=== PATIENT | female | born 2000 | race Caucasian/White ===

== ENCOUNTER → 2019-02-13 | Outpatient (CLI) | payer BC ==
--- NOTE | 2019-02-13 12:31 | XR ---
EXAMINATION TYPE: XR abdomen 1V DATE OF EXAM: 02/13/2019 COMPARISON: NONE HISTORY: Hematuria TECHNIQUE: One view abdominal series FINDINGS: The osseous structures are intact. The bowel gas pattern is nonspecific. There is extensive retained fecal debris. Correlate for constipation. Right kidney: Obscured by extensive overlying fecal debris. No obvious calcifications. Left kidney: Within the region of the renal pelvis there is a large calcification measuring 7 x 7 mm. Pelvis: No suspicious calcifications. IMPRESSION: 1. Nonspecific abdomen. Correlate for constipation. 2. 7 mm left renal pelvic calcification.
== END | disposition home or self-care (01) ==
LOC: RADXRMAIN 11:44
PROVIDERS: ATTEND Urology
DX: K59.00 Constipation, unspecified (principal); N28.89 Other specified disorders of kidney and ureter; R31.9 Hematuria, unspecified
CPT/HCPCS: 74018

== ENCOUNTER → 2019-05-08 | Outpatient (CLI) | payer BC ==
--- NOTE | 2019-05-08 13:13 | XR ---
EXAMINATION TYPE: XR KUB DATE OF EXAM: 05/08/2019 COMPARISON: 02/13/2019 HISTORY: Pain TECHNIQUE: One view abdominal series FINDINGS: The osseous structures are intact. The bowel gas pattern is nonspecific. Extensive retained bowel co ntent. Right kidney: Obscured by extensive overlying fecal debris. No obvious calcifications. Left kidney: Within the region of the renal pelvis there is a large calcification measuring 7 x 7 mm. Pelvis: No suspicious calcifications. IMPRESSION: 1. Stable left renal pelvic calcification measuring approximately 7 x 7 mm. 2. Correlate for constipation.
== END | disposition home or self-care (01) ==
LOC: RADXRMAIN 12:35
PROVIDERS: ATTEND Urology
DX: N20.1 Calculus of ureter (principal)
CPT/HCPCS: 74018

== ENCOUNTER → 2019-05-18 | Outpatient (CLI) | payer BC ==
--- NOTE | 2019-05-18 13:20 | XR ---
KUB HISTORY: Left-sided ureteral calculus Frontal KUB and 2 images correlated to prior KUB 05/08/2019 Calcification overlying the left kidney is again noted measures approximately 13 mm in greatest cepha locaudal dimension. There is a large amount of retained fecal debris present. Osseous structures are well-mineralized. IMPRESSION: Left-sided calculus does not show significant change. Correlate for constipation.
== END | disposition home or self-care (01) ==
LOC: RADXRMAIN 07:41
PROVIDERS: ATTEND Urology
DX: N20.1 Calculus of ureter (principal); Z98.890 Other specified postprocedural states
CPT/HCPCS: 74018

== ENCOUNTER 2019-05-30 12:28 | Day surgery (SDC) | payer BC ==
[2019-05-30 13:04] VITALS: RESP 16
[2019-05-30] MEDS ORDERED: LACTATED RINGERS 1,000 ML IV ONE (13:13)
[2019-05-30] MEDS ORDERED: DEXAMETHASONE SOD PHOSPHATE 10 MG/ML 1 ML VIAL IV ONE (13:14)
[2019-05-30] MEDS ORDERED: ONDANSETRON 4 MG/2 ML VIAL IVP ONE ×2 (13:14→16:47)
[2019-05-30] MEDS ORDERED: PHENYLEPHRINE-0.9% NACL SYG 1 MG/10 ML SYRINGE ONE (13:47)
[2019-05-30] MEDS ORDERED: MIDAZOLAM 2 MG/2 ML VIAL ONE (13:47)
[2019-05-30] MEDS ORDERED: PROPOFOL 10 MG/ML 20 ML VIAL IV ONE (13:47)
[2019-05-30] MEDS ORDERED: fentaNYL (PF) 50 MCG/ML 2 ML AMP ONE (13:47)
[2019-05-30] MEDS ORDERED: LIDOCAINE 1% INJ 10MG/ML (20 ML MDV) ONE (13:47)
[2019-05-30 15:14] VITALS: TEMP 97
--- NOTE | 2019-05-30 15:21 | P.OP ---
Date of Procedure: 05/30/19 Preoperative Diagnosis: Left ureteral calculus Postoperative Diagnosis: Same Procedure(s) Performed: Cystoscopy, left ureteroscopy, laser lithotripsy and stone basketing, placement of 6 x 26 stent Anesthesia: MEGHANA Surgeon: Wilder Diana Estimated Blood Loss (ml): 10 Pathology: other (stone) Indications for Procedure: The patient is a 18-year-old female who had a 9 mm UPJ stone. She underwent shockwave lithotripsy and the stone didn't break. She is still having pain and blood. She comes for ureteroscopy. Description of Procedure: The patient is brought to the operating suite. She is given a general endotracheal anesthesia. She's placed lithotomy position with sterile prep and drape. Cystoscopy Foroblique lens and 22-Bahamian sheath identifies normal urethra. The left ureter orifices identified and normal. The rest the bladder rooney unremarkable as is a right ureteral orifice. The left ureteral orifice was intubated with an 035 wire. I removed the cystoscope and over the wires passed in the 13-98-Mnfinw reentry sheath. I removed the inner sheath and wire into the 13-Bahamian sheath and passed the flexible ureteroscope up into the kidney. The large stone seen. With the 200 laser probe and 4 W of energy the stone was broken into very tiny pieces. I basket the larger fragments. There is only sand that remained. Through sheath is passed an 035 wire that sits in the kidney. I removed the sheath and over the wires and passed a 6 x 26 double- J catheter that coils in the renal pelvis and the bladder. I left it attached the strings a that it can be removed in a couple days. The patient tolerated the procedure well. Blood loss is approximately 10 mL.
--- NOTE | 2019-05-30 15:22 | FL ---
Fluoroscopy HISTORY: Left renal calculus 32 seconds fluoroscopy time supplied to the referring clinician. 0 intraoperative C-arm images docum ent the procedure. See dictated report from urology.
[2019-05-30 17:07] VITALS: BP 113/75; PULSE 73
[2019-05-30] MEDS ORDERED: HYDROcodone/APAP 5-325MG 1 EACH TAB PO ONE (17:34)
== END 2019-05-30 18:10 | disposition home or self-care (01) ==
LOC: OR 12:28
PROVIDERS: ATTEND Urology
DX: N20.1 Calculus of ureter (principal); Z87.442 Personal history of urinary calculi
CPT/HCPCS: 81025; 82365; 52356; C2625; C1769; J2250; J1100; J2405; J2001; J3010; J2370; J2704; 74018

== ENCOUNTER → 2019-05-30 | Outpatient (CLI) | payer BC ==
--- NOTE | 2019-05-30 11:06 | P.GSHP ---
History of Present Illness H&P Date: 05/30/19 18 yo female with a 9mm left upj stone who failed eswl two weeks ago. SHe is still having intermittent pain and blood SHe comes for a ureteroscopy and laser lithotripsy left - Constitutional Constitutional: Denies chills, Denies fever - EENT Eyes: denies blurred vision, denies pain Ears, nose, mouth and throat: Denies headache, Denies sore throat - Cardiovascular Cardiovascular: Denies chest pain, Denies shortness of breath - Respiratory Respiratory: Denies cough, Denies 7 - Gastrointestinal Gastrointestinal: Denies abdominal pain, Denies diarrhea, Denies nausea, Denies vomiting - Genitourinary (Female) Genitourinary: Denies dysuria, Denies hematuria - Genitourinary (Male) Genitourinary: Denies dysuria, Denies hematuria - Musculoskeletal Musculoskeletal: Denies myalgias - Integumentary Integumentary: Denies pruritus, Denies rash - Neurological Neurological: Denies numbness, Denies weakness - Psychiatric Psychiatric: Denies anxiety, Denies depression - Endocrine Endocrine: Denies fatigue, Denies weight change Surgical - Exam - General well developed, well nourished, no distress - Eyes PERRL - ENT no hearing loss - Respiratory normal expansion, normal respiratory effort - Cardiovascular Rhythm: regular - Abdomen Abdomen: soft, non tender - Integumentary no rash, no growths - Musculoskeletal normal gait, normal posture - Psychiatric oriented to time, oriented to person, oriented to place, speech is normal, memory intact Results - Imaging Abdominal x-ray: report reviewed, image reviewed Assessment and Plan Assessment: Impression: Left renal stone Plan: Left ureteroscopy with laser lithotripsy
--- NOTE | 2019-05-30 14:09 | XR ---
KUB HISTORY: Kidney stone, post lithotripsy From a KUB correlated to prior exam 05/18/2019 Calcification persists over the mid to lower pole the left kidney and has a more transverse orientati on than vertical as on prior and measures approximately 12 mm in greatest dimension. There is retaine d fecal debris present. No evident bowel obstruction or pneumoperitoneum. IMPRESSION: Left-sided nephrolithiasis as described.
== END | disposition home or self-care (01) ==
LOC: RADXRMAIN 09:51
PROVIDERS: ATTEND Urology
DX: N20.0 Calculus of kidney (principal)
CPT/HCPCS: 74018